=== PATIENT | male | born 2000 | race Caucasian/White ===

== ENCOUNTER → 2023-12-29 | Emergency (ER) | payer SELFPAY ==
[~2023-12-29] VITALS: Ht 152.4 cm; Wt 81.6 kg
[2023-12-29 14:38] VITALS: BP 144/77; TEMP 98
[2023-12-29 15:02] VITALS: O2SAT 98
== END | disposition home or self-care (01) ==
LOC: ER 14:25
DX: F31.9 Bipolar disorder, unspecified (principal); J45.909 Unspecified asthma, uncomplicated; Z88.8 Allergy status to other drugs, medicaments and biological substances